=== PATIENT | male | born 1980 | race Caucasian/White ===

== ENCOUNTER 2017-01-27 19:33 | Emergency (ER) | payer BC ==
[2017-01-27 20:00] VITALS: BP 150/84
--- NOTE | 2017-01-27 21:58 | EDM.PDOC ---
ED HPI GENERAL MEDICAL PROBLEM - General Chief Complaint: Upper Extremity Injury/Pain Stated Complaint: HURT WRIST Time Seen by Provider: 01/27/17 20:17 Source of Information: Reports: Patient History Limitations: Reports: No Limitations - History of Present Illness INITIAL COMMENTS - FREE TEXT/NARRATIVE: This patient said that he tried breaking a brick as a tae sudheer do event about an hour ago. He said the first time the brick did not break and he got a lot of pain in his wrist. He tried a second time and was able to break the brick. He noticed that his right wrist is swelling and the pain extends up his forearm Right Wrist Pain Score (Numeric/FACES): 3 - Related Data Allergies Allergy/AdvReac Type Severity Reaction Status Date / Time No Known Allergies Allergy Verified 01/27/17 20:00 Home Meds: Home Meds NK [No Known Home Meds] 01/27/17 [History] Past Medical History Gastrointestinal History: Reports: Other (See Below) Other Gastrointestinal History: ulcer Musculoskeletal History: Reports: Fracture Other Musculoskeletal History: Fx l arm - Infectious Disease History Infectious Disease History: Reports: Chicken Pox Social & Family History - Tobacco Use Smoking Status *Q: Never Smoker Second Hand Smoke Exposure: No - Caffeine Use Caffeine Use: Reports: Coffee, Energy Drinks, Soda, Tea - Alcohol Use Days Per Week of Alcohol Use: 2 Number of Drinks Per Day: 3 Total Drinks Per Week: 6 - Recreational Drug Use Recreational Drug Use: No Review of Systems - Review of Systems Review Of Systems: ROS reveals no pertinent complaints other than HPI. ED EXAM, GENERAL - Physical Exam Exam: See Below Exam Limited By: No Limitations General Appearance: Alert, WD/WN, No Apparent Distress Peripheral Pulses: 2+: Radial (R) Extremities: Other (There is mild swelling of the right wrist and distal forearm. There is slight tenderness in the snuffbox and to the distal radius. Neurovascular tendon all intact.) Course - Vital Signs Last Recorded V/S: Last Vital Signs Temp 37.3 C 01/27/17 20:03 Pulse 81 01/27/17 20:03 Resp 16 01/27/17 20:03 BP 150/84 H 01/27/17 20:03 Pulse Ox 97 01/27/17 20:03 - Orders/Labs/Meds Orders: Active Orders 24 hr Category Date Time Status Wrist Comp Min 3V Rt [CR] Stat Exams 01/27/17 20:24 Taken - Re-Assessments/Exams Free Text/Narrative Re-Assessment/Exam: 01/27/17 22:06 Wrist x-rays shows a nondisplaced Colles' fracture and an ulnar styloid fracture. One of the views shows some irregularity to the scaphoid but no definite fracture A sugar tong splint was applied to the right forearm and wrist Departure - Departure Time of Disposition: 21:54 Disposition: Home, Self-Care 01 Condition: Fair Clinical Impression: Closed Colles' fracture, Fracture of ulnar styloid - Discharge Information Instructions: Colles Fracture Referrals: Tommy Posadas MD [Primary Care Provider] - Forms: ED Department Discharge Additional Instructions: If you have fractures of both of the bones of your forearm at the wrist. There is a distal radius fracture or Colles' fracture (that's the bone on the thumb side of your forearm) and an ulnar styloid fracture. That's the tip of the other bone of the forearm. There is also some irregularity of the scaphoid bone which is a bone in the wrist that connects to your thumb. Wear the splint for protection. Apply ice and keep it elevated as much as you can. An appointment will be made for you to see the orthopedist Dr. Sloan. He will most likely apply a cast for about 6 weeks. - My Orders Last 24 Hours: My Active Orders 01/27/17 20:24 Wrist Comp Min 3V Rt [CR] Stat - Assessment/Plan Last 24 Hours: My Active Orders 01/27/17 20:24 Wrist Comp Min 3V Rt [CR] Stat
--- NOTE | 2017-01-28 10:02 | CR ---
Fracture transversely through the radial styloid and epiphysis through the radiocarpal joint. Ulnar s tyloid process avulsion as well. Carpus is intact.
== END 2017-01-27 22:15 | disposition home or self-care (01) ==
LOC: JP.ED 19:33
DX: S52.531A Colles' fracture of right radius, initial encounter for closed fracture (principal); S52.611A Displaced fracture of right ulna styloid process, initial encounter for closed fracture; W22.8XXA Striking against or struck by other objects, initial encounter
CPT/HCPCS: 29125; 73110-26-RT; 73110-RT; 99284-25